=== PATIENT | male | born 1990 | race African-American/Black ===

== ENCOUNTER 2016-08-17 19:40 | Emergency (ER) | payer SELFPAY ==
[~2016-08-17] VITALS: Ht 182.9 cm; Wt 110.0 kg
[~2016-08-17 19:40] MED LIST: DICL50 PO; DOXY100T PO
[2016-08-17 19:42] VITALS: BP 144/91; PULSE 71; RESP 16; TEMP 98; O2SAT 100
--- NOTE | 2016-08-17 20:25 | PD ---
HPI Chief Complaint: Complaint Time Seen by Provider: 20:23 Travel History International Travel<30 days: No Contact w/Intl Traveler<30days: No Traveled to known affect area: No History of Present Illness HPI 25-year-old black male presents emergency department with complaints of hematuria. He states that he has a cold for the past week. That is been improving. This evening had gotten up to urinate. He states that he started urinating normally followed by bloody urine. He states that he has had a small amount of bloody discharge from his penis. He denies any other urethral discharge. He denies any fever chills. No nausea vomiting. No dysuria or frequency. PFSH Past Medical History Narrative Medical STD GC and chlamydia Diminished Hearing: No Immunizations Current: Yes Tetanus Vaccination: < 5 Years Past Surgical History Surgical History: No Previous Surgery Social History Alcohol Use: No Tobacco Use: No Substance Use: Yes (POT DAILY) Allergies-Medications (Allergen,Severity, Reaction): Coded Allergies: No Known Allergies (Verified , 08/17/16) Reported Meds & Prescriptions Reported Meds & Active Scripts Active Pyridium (Phenazopyridine HCl) 200 Mg Tab 200 Mg PO Q8H PRN Cipro (Ciprofloxacin HCl) 500 Mg Tab 500 Mg PO BID [id number] Mg 50 Mg Tabec 50 Mg PO TID Doxycycline Hyclate 100 mg (Doxycycline Hyclate) 100 Mg Tab 100 Mg PO BID Review of Systems Except as stated in HPI: all other systems reviewed are Neg Gastrointestinal: No: Nausea, Vomiting, Abdominal Pain Genitourinary: Positive: Hematuria, No: Urgency, Dysuria, Nocturia, Discharge Physical Exam Narrative GENERAL: This is a well-nourished, well-developed patient, in no apparent distress. SKIN: No rashes, ecchymoses or lesions. Warm and dry. HEAD: Atraumatic. Normocephalic. EYES: PERRL, EOMI, no discharge or injection. No scleral icterus. EARS: Clear NOSE: Nasal turbinates appear normal. THROAT: Mucosa pink and moist. Airway patent. NECK: Trachea midline. supple, moves head freely. LUNGS: Clear to auscultation. CV: Regular in rhythm. ABDOMEN: Soft nontender. EXT: No clubbing cyanosis or edema. GENITOURINARY: Circumcised. Testes descended bilaterally without evidence of rotation. No lesions or erythema. No urethral discharge. Data Data Last Documented VS Vital Signs Date Time Temp Pulse Resp B/P Pulse Ox O2 Delivery O2 Flow Rate FiO2 08/17/16 20:20 18 08/17/16 19:42 98.0 71 144/91 100 Orders Urinalysis - C+S If Indicated (08/17/16 20:22) Gc And Chlamydia Pcr (08/17/16 20:22) Urine Culture (08/17/16 20:30) Ceftriaxone Inj (Rocephin Inj) (08/17/16 21:30) Azithromycin Powd Pack (Zithromax Powd P (08/17/16 21:30) Phenazopyridine (Pyridium) (08/17/16 21:30) Lidocaine 1% Inj (Xylocaine 1% Inj) (08/17/16 21:45) Labs Laboratory Tests Test 08/17/16 20:30 Urine Color RED Urine Turbidity CLOUDY Urine pH 6.5 Urine Specific [place] 1.019 Urine Protein 100 mg/dL Urine Glucose (UA) NEG mg/dL Urine Ketones NEG mg/dL Urine Occult Blood MOD Urine Nitrite NEG Urine Bilirubin NEG Urine Urobilinogen LESS THAN 2.0 MG/DL Urine Leukocyte Esterase LARGE Urine RBC /hpf Urine WBC /hpf Urine WBC Clumps MANY Urine Mucus FEW /lpf Microscopic Urinalysis Comment CULTURE INDICATED MDM Medical Decision Making Medical Screen Exam Complete: Yes Emergency Medical Condition: Yes Medical Record Reviewed: Yes Interpretation(s) Laboratory Tests Test 08/17/16 20:30 Urine Color RED Urine Turbidity CLOUDY Urine pH 6.5 Urine Specific [place] 1.019 Urine Protein 100 mg/dL Urine Glucose (UA) NEG mg/dL Urine Ketones NEG mg/dL Urine Occult Blood MOD Urine Nitrite NEG Urine Bilirubin NEG Urine Urobilinogen LESS THAN 2.0 MG/DL Urine Leukocyte Esterase LARGE Urine RBC /hpf Urine WBC /hpf Urine WBC Clumps MANY Urine Mucus FEW /lpf Microscopic Urinalysis Comment CULTURE INDICATED Differential Diagnosis MDM: Moderate Differential diagnoses: Chlamydia, gonorrhea, syphilis, chancroid, hepatitis, HIV, herpes, UTI, hematuria Narrative Course Patient's urine is positive for UTI. Patient was given Rocephin 1 g IM and Zithromax 1 g by mouth. He'll be discharged home on Cipro and Pyridium. He is encouraged to follow-up with a [facility] or her primary care doctor Diagnosis Primary Impression: UTI (urinary tract infection) Qualified Code: N30.01 - Acute cystitis with hematuria Patient Instructions: General Instructions Additional Instructions: Rest. Follow-up with the [facility] for further culture results , STD testing such as HIV, syphilis and hepatitis. Follow-up with a primary care doctor or a urologist in 3-7 days. Always use a condom. Return to the ER if any problems. Med/Other Pt SpecificInfo: Prescription(s) given Scripts Phenazopyridine (Pyridium)200 Mg [id number] Mg PO Q8H PRN (DYSURIA) #9 TAB Prov:Eleuterio Lyman MD 08/17/16 Ciprofloxacin (Cipro)500 Mg [id number] Mg PO BID #20 TAB Prov:Eleuterio Lyman MD 08/17/16 Disposition: 01 DISCHARGE HOME Condition: Stable Yogesh Leiva Aug 17, 2016 20:25
[2016-08-17 21:10] LABS: BLOOD, URINE MOD (NEG); COMMENT (UR) CULTURE INDICATED; CULTURE IF INDICATED CULTURE INDICATED; GLUCOSE,URINE NEG (NEG); KETONE, URINE NEG (NEG); MUCUS URINE FEW /lpf (OCC); NITRITE,URINE NEG (NEG); PH, URINE 6.5 (5.0-8.5)
[2016-08-17 21:16] LABS: URINE COLOR RED (YELLW/STRAW)
[2016-08-17] MEDS ORDERED: AZITHROMYCIN PWD FOR SUSP 1 GM PACKET PO ONE (21:30)
[2016-08-17] MEDS ORDERED: PHENAZOPYRIDINE HCL 200 MG TAB PO ONE (21:30)
[2016-08-17] MEDS ORDERED: LIDOCAINE HCL 1% 30 ML VIAL INFIL ONE (21:45)
[2016-08-17] MEDS ORDERED: PYRI200T4 PO (21:51)
[2016-08-17] MEDS ORDERED: CIPR-9 PO (21:51)
[2016-08-17 23:37] LABS: CHLAMYDIA PCR NOT DETECTED (NOT DETECT); NEISSERIA PCR NOT DETECTED (NOT DETECT)
== END 2016-08-17 22:27 | disposition home or self-care (01) ==
LOC: NEPB 19:40
DX: N39.0 Urinary tract infection, site not specified (principal); B96.1 Klebsiella pneumoniae [K. pneumoniae] as the cause of diseases classified elsewhere
CPT/HCPCS: 81001; 87077; 87086; 87186; 87491; 87591; 96372; 99283; J0696